=== PATIENT | female | born 1930 | race Caucasian/White ===

== ENCOUNTER 2016-08-24 14:25 | Outpatient (CLI) | payer MEDICARE, OTHER | END 2016-08-24 14:26 | disposition home or self-care (01) | DX: R30.0 Dysuria (principal) ==

== ENCOUNTER 2017-01-12 10:24 | Outpatient (CLI) | payer MEDICARE, OTHER ==
[2017-01-12 17:52] LABS: BASOPHILS % (AUTO) 0.6 %; EOSINOPHILS # (AUTO) 0.2 10^3/uL (0.0-0.7); EOSINOPHILS % (AUTO) 2.4 %; HCT - HEMATOCRIT 36.4 % (37.0-47.0); HGB - HEMOGLOBIN 11.9 g/dL (12.0-16.0); LYMPHOCYTES # (AUTO) 1.8 10^3/uL (1.5-3.5); LYMPHOCYTES % (AUTO) 24.9 %; MEAN CORPUSCULAR HEMOGLOBIN 32.8 pg (27.0-31.0); MEAN CORPUSCULAR HGB CONC 32.6 g/dL (32.0-36.0); MEAN CORPUSCULAR VOLUME 100.6 fL (81.0-99.0); MEAN PLATELET VOLUME 7.8 fL (7.9-10.8); MONOCYTES # (AUTO) 0.6 10^3/uL (0.0-1.0); MONOCYTES % (AUTO) 8.5 %; NEUTROPHILS # (AUTO) 4.7 10^3/uL (1.5-6.6); NEUTROPHILS % (AUTO) 63.6 %; NUCLEATED RED BLOOD CELLS AUTO 0.1 /100WBC; RED BLOOD COUNT 3.62 10^6/uL (4.20-5.40); RED CELL DISTRIBUTION WIDTH 15.2 % (12.0-15.0); UNCORRECTED WHITE BLOOD COUNT 7.4 x10^3/uL; WHITE BLOOD COUNT 7.4 x10^3/uL (4.8-10.8)
[2017-01-12 18:09] LABS: HEMOGLOBIN A1C 0.44 g/dL
[2017-01-12 18:24] LABS: ALBUMIN/GLOBULIN RATIO 1.2 (1.0-2.2); BILIRUBIN,TOTAL 0.9 mg/dL (0.2-1.0); BUN - BLOOD UREA NITROGEN 28 mg/dL (6-20); CALCIUM 9.1 mg/dL (8.5-10.3); CARBON DIOXIDE - CO2 25 mmol/L (21-32); CHLORIDE 107 mmol/L (101-111); CHOL/HDL RATIO 2.1 (<4.4); CHOLESTEROL 199 mg/dL; CREATININE 0.9 mg/dL (0.4-1.0); GFR - MDRD 59 (>89); GLUCOSE 85 mg/dL (70-100); HDL CHOLESTEROL 97 mg/dL; LDL/HDL RATIO 0.9 (<4.4); POTASSIUM 4.7 mmol/L (3.5-5.0); SODIUM 141 mmol/L (135-145); TRIGLYCERIDES 63 mg/dL; VLDL CHOLESTEROL 13 mg/dL
== END 2017-01-12 10:25 | disposition home or self-care (01) ==
LOC: LAB.F 10:24
PROVIDERS: ATTEND Internal Medicine
DX: E11.9 Type 2 diabetes mellitus without complications (principal); Z79.899 Other long term (current) drug therapy; I48.91 Unspecified atrial fibrillation; E78.5 Hyperlipidemia, unspecified; I10 Essential (primary) hypertension
CPT/HCPCS: 36415; 80053; 80061; 83036; 84443; 85025

== ENCOUNTER 2017-02-09 08:25 | Outpatient (CLI) | payer MEDICARE, OTHER | END 2017-02-09 08:26 | disposition critical access hospital (66) | LOC: EMS 08:25 | PROVIDERS: ATTEND Surgery | DX: M54.5 Low back pain (principal); W18.39XA Other fall on same level, initial encounter; Y92.003 Bedroom of unspecified non-institutional (private) residence as the place of occurrence of the external cause | CPT/HCPCS: A0425; A0429 ==

== ENCOUNTER 2017-02-09 08:57 | Emergency (ER) | payer MEDICARE, OTHER ==
[2017-02-09] MEDS ORDERED: LIDOCAINE PATCH 5% TOP STA (09:06)
[2017-02-09] MEDS ORDERED: ACETAMINOPHEN 325 MG TABLET PO STA (09:06)
[2017-02-09] MEDS ORDERED: ACETAMINOPHEN 325 MG TABLET PO ONE (09:20)
[2017-02-09] MEDS ORDERED: LIDOCAINE PATCH 5% TOP ONE (09:20)
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
--- NOTE | 2017-02-09 10:50 | XRAY Preliminary Report ---
Exam: XR LUMBAR SPINE 2 VIEW IMPRESSION: There is compression of the L2 and L5 vertebral bodies which appears chronic but is time indeterminate. There is nonspecific horizontal sclerosis of L1-L4. Other imaging is available if clin ically indicated. [facility] SITE ID: [id number]
--- NOTE | 2017-02-09 10:53 | XRAY Report ---
EXAM: LUMBOSACRAL SPINE RADIOGRAPHY EXAM DATE: 02/09/2017 10:26 AM. CLINICAL HISTORY: Pain after fall. COMPARISONS: None. TECHNIQUE: 3 views. FINDINGS: Alignment: Normal. No spondylolisthesis or scoliosis. There is compression of the L2 and L5 vertebral bodies. They appear chronic but are time indeterminat e in the absence of a comparison. There is slight horizontal sclerosis overlying each vertebral body, which is nonspecific. Sacroiliac Joints: Unremarkable. Bilateral hip prostheses are noted. IMPRESSION: There is compression of the L2 and L5 vertebral bodies which appears chronic but is time indeterminate. There is nonspecific horizontal sclerosis of L1-L4. Other imaging is available if clin ically indicated. [facility] Referring Provider Line: [phone] SITE ID: [id number]
--- NOTE | 2017-02-09 10:54 | XRAY Preliminary Report ---
Exam: XR PELVIS 1 VIEW IMPRESSION: No obvious fracture on frontal view only. The exam is limited by osteopenia. Other imagin g is available if clinically indicated. [facility] SITE ID: [id number]
--- NOTE | 2017-02-09 10:56 | XRAY Report ---
EXAM: PELVIS RADIOGRAPHY EXAM DATE: 02/09/2017 10:26 AM. CLINICAL HISTORY: Pain after fall. COMPARISON: None. TECHNIQUE: 1 view. FINDINGS: Bones: No obvious fracture on frontal view of the pelvis. Right iliac wing is excluded. Joints: Bilateral hip prostheses are noted. Alignment appears anatomic. The exam is limited by osteopenia and habitus. IMPRESSION: No obvious fracture on frontal view only. The exam is limited by osteopenia. Other imagin g is available if clinically indicated. [facility] Referring Provider Line: [phone] SITE ID: [id number]
[2017-02-09] MEDS ORDERED: oxyCODONE 5 MG TABLET PO STA (11:32)
[2017-02-09] MEDS ORDERED: oxyCODONE 5 MG TABLET ONE (11:56)
--- NOTE | 2017-02-09 14:20 | CT Preliminary Report ---
Exam: CT PELVIS W/O IMPRESSION: 1. No definite acute disease 2. Large left adnexal cyst, most likely ovarian. Further evaluation with ultrasound may be helpful. 3. Bilateral total hip prostheses, diverticulosis, and other chronic or incidental findings. [facility] SITE ID: [id number]
--- NOTE | 2017-02-09 14:22 | CT Report ---
EXAM: CT BONY PELVIS WITHOUT CONTRAST EXAM DATE: 02/09/2017 02:03 PM. CLINICAL HISTORY: Fall, pain. COMPARISON: None. TECHNIQUE: Thin-section axial images were acquired of the pelvis without contrast. Post-processing: C oronal and sagittal reformats. Other: None. In accordance with CT protocol optimization, one or more of the following dose reduction techniques w ere utilized for this exam: automated exposure control, adjustment of mA and/or KV based on patient s ize, or use of iterative reconstructive technique. FINDINGS: Bones: Markedly osteopenic. No definite fracture or other bone lesion. Sacroiliac Joints: No widening, erosions, or sclerosis. Symphysis Pubis: Unremarkable. Right Hip: Total hip prosthesis in anatomic alignment. No abnormal lucency associated with the prosth esis. Left Hip: Total hip prosthesis in anatomic alignment. No abnormal lucency associated with the prosthe sis. Musculature: Grossly unremarkable. Pelvic Cavity: Marked colonic diverticulosis. No definite diverticulitis at this time. No bowel dilat ion, free air, free fluid, or lymphadenopathy. Grossly unremarkable urinary bladder. Large left adnex al cyst measuring about 9.7 cm in diameter, most likely ovarian, displacing an atrophic uterus to the right. Other: Small right inguinal hernia with fat involvement only. Nonspecific soft tissue calcifications posteriorly, probably posttraumatic. IMPRESSION: 1. No definite acute disease 2. Large left adnexal cyst, most likely ovarian. Further evaluation with ultrasound may be helpful. 3. Bilateral total hip prostheses, diverticulosis, and other chronic or incidental findings. [facility] Referring Provider Line: [phone] SITE ID: [id number]
--- NOTE | 2017-02-09 14:35 | CT Report ---
EXAM: CT LUMBAR SPINE WITHOUT CONTRAST EXAM DATE: 02/09/2017 02:03 PM. CLINICAL HISTORY: Fall, pain. COMPARISONS: None. TECHNIQUE: Thin-section axial images were acquired of the lumbar spine from T12 to S1 without contras t. Post-processing: Coronal and sagittal reformats. Other: None. In accordance with CT protocol optimization, one or more of the following dose reduction techniques w ere utilized for this exam: automated exposure control, adjustment of mA and/or KV based on patient s ize, or use of iterative reconstructive technique. FINDINGS: Alignment: Minimal spinal curvature on frontal view. No listhesis. Bones: 5 lumbar vertebrae. Marked osteopenia. Subtle cortical and upper endplate disruptions in the a nterior column of L1 with no loss of vertebral body height at this time. Prominently comminuted fract ure of L2 involving upper and lower endplates and extending into the intermediate column of the verte bral body with minimal retropulsion of upper posterior cortex narrowing the canal centrally about 15% . Minimal cortical disruption and compression of anterior column of L3. No posterior column involveme nt. No other definite fracture or bone lesion. Disk Levels/Facets: T12-L1: Unremarkable. L1-L2: Unremarkable. L2-L3: Moderate degenerative facet disease. L3-L4: Moderate to marked degenerative facet disease. Mild diffuse disk bulge with mild canal stenosi s. L4-L5: Marked degenerative facet disease. Marked diffuse disk bulge with apparent central disk protru gerardo and marked canal stenosis. L5-S1: Disk space narrowing with marginal lipping. Mild degenerative facet disease. Musculature: Grossly unremarkable. Other: See separate report. IMPRESSION: 1. L2 compression fracture involving 2 columns, with slight loss of disk space height and minimal ret ropulsion of cortex area 2. Subtle anterior column fractures of L1 and L3. 3. 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 [facility] Referring Provider Line: [phone] SITE ID: [id number]
[2017-02-09 16:25] VITALS: BP 172/76
== END 2017-02-09 16:24 | disposition home or self-care (01) ==
LOC: EDUNIT# → ED 08:57
DX: S32.020A Wedge compression fracture of second lumbar vertebra, initial encounter for closed fracture (principal); W01.0XXA Fall on same level from slipping, tripping and stumbling without subsequent striking against object, initial encounter; N83.202 Unspecified ovarian cyst, left side; M51.26 Other intervertebral disc displacement, lumbar region; M48.061 Spinal stenosis, lumbar region without neurogenic claudication; I10 Essential (primary) hypertension; E78.00 Pure hypercholesterolemia, unspecified; Z96.659 Presence of unspecified artificial knee joint
CPT/HCPCS: 72100; 72131; 72170; 72192; 99283; 99284; A9270

== ENCOUNTER 2017-02-18 14:15 | Outpatient (CLI) | payer MEDICARE, OTHER ==
[2017-02-18 18:15] LABS: BILIRUBIN,URINE NEGATIVE (NEGATIVE)
[2017-02-18 18:23] LABS: UA w/ MICROSCOPIC CHARGE YES
[2017-02-18 19:57] LABS: UR CULTURE IF IND INDICATED; WBC,URINE >25 /HPF (0-5)
== END 2017-02-18 14:16 | disposition home or self-care (01) ==
LOC: LAB.R 14:15
DX: R82.90 Unspecified abnormal findings in urine (principal); N39.0 Urinary tract infection, site not specified
CPT/HCPCS: 81001; 81003; 87086

== ENCOUNTER 2018-01-17 08:00 | Outpatient (CLI) | payer MEDICARE, OTHER ==
[2018-01-17 18:12] LABS: BASOPHILS # (AUTO) 0.1 10^3/uL (0.0-0.1); BASOPHILS % (AUTO) 0.8 %; EOSINOPHILS # (AUTO) 0.2 10^3/uL (0.0-0.7); EOSINOPHILS % (AUTO) 3.2 %; HGB - HEMOGLOBIN 11.6 g/dL (12.0-16.0); LYMPHOCYTES # (AUTO) 1.8 10^3/uL (1.5-3.5); LYMPHOCYTES % (AUTO) 24.9 %; MEAN CORPUSCULAR HEMOGLOBIN 32.9 pg (27.0-31.0); MEAN CORPUSCULAR HGB CONC 33.2 g/dL (32.0-36.0); MEAN CORPUSCULAR VOLUME 99.1 fL (81.0-99.0); MEAN PLATELET VOLUME 7.5 fL (7.9-10.8); MONOCYTES # (AUTO) 0.6 10^3/uL (0.0-1.0); MONOCYTES % (AUTO) 8.4 %; NEUTROPHILS # (AUTO) 4.4 10^3/uL (1.5-6.6); NEUTROPHILS % (AUTO) 62.7 %; PLT - PLATELET COUNT 274 10^3/uL (130-450); RED BLOOD COUNT 3.53 10^6/uL (4.20-5.40); RED CELL DISTRIBUTION WIDTH 15.1 % (12.0-15.0); WHITE BLOOD COUNT 7.1 x10^3/uL (4.8-10.8)
[2018-01-17 18:36] LABS: ALBUMIN 3.7 g/dL (3.2-5.5); ALBUMIN/GLOBULIN RATIO 1.2 (1.0-2.2); ALKALINE PHOSPHATASE 84 IU/L (42-121); ALT ALANINE AMINOTRANSFERASE 14 IU/L (10-60); AST ASPARTATE AMINOTRANSFERASE 25 IU/L (10-42); BILIRUBIN,TOTAL 0.5 mg/dL (0.2-1.0); BUN - BLOOD UREA NITROGEN 33 mg/dL (6-20); CALCIUM 8.8 mg/dL (8.5-10.3); CARBON DIOXIDE - CO2 24 mmol/L (21-32); CHLORIDE 105 mmol/L (101-111); CHOL/HDL RATIO 2.1 (<4.4); CHOLESTEROL 193 mg/dL; CREATININE 1.1 mg/dL (0.4-1.0); GFR - MDRD 47 (>89); GLUCOSE 105 mg/dL (70-100); HDL CHOLESTEROL 93 mg/dL; LDL CHOLESTEROL,CALCULATED 90 mg/dL; SODIUM 138 mmol/L (135-145); TOTAL PROTEIN 6.8 g/dL (6.7-8.2); URIC ACID 5.5 mg/dL (2.6-7.2); VLDL CHOLESTEROL 10 mg/dL
[2018-01-17 19:17] LABS: HEMOGLOBIN A1C 0.45 g/dL; HEMOGLOBIN A1C % 5.6 % (4.6-6.2)
== END 2018-01-17 08:01 | disposition home or self-care (01) ==
LOC: LAB.F 08:00
PROVIDERS: ATTEND Internal Medicine
DX: I48.91 Unspecified atrial fibrillation (principal); E53.8 Deficiency of other specified B group vitamins; E11.9 Type 2 diabetes mellitus without complications; M10.9 Gout, unspecified; E78.5 Hyperlipidemia, unspecified; I10 Essential (primary) hypertension
CPT/HCPCS: 36415; 80053; 80061; 83036; 83721; 84550; 85025